=== PATIENT | male | born 1980 | race Caucasian/White ===

== ENCOUNTER → 2019-09-18 | Outpatient (CLI) | payer OTHER ==
--- NOTE | 2019-09-19 16:34 | XR ---
EXAMINATION TYPE: XR elbow complete RT DATE OF EXAM: 09/18/2019 CLINICAL HISTORY: pain TECHNIQUE: Frontal, lateral and oblique images of the right elbow are obtained. COMPARISON: None. FINDINGS: There is no acute fracture/dislocation evident of the elbow. No abnormal fat pad signs ar e seen. The overlying soft tissue appears unremarkable. IMPRESSION: There is no acute fracture or dislocation of the elbow. ICD 10 NO FRACTURE, INITIAL EVALUATION
== END | disposition home or self-care (01) ==
LOC: RADXRYALE 16:11
PROVIDERS: ATTEND Internal Medicine
DX: M25.521 Pain in right elbow (principal)

== ENCOUNTER 2021-03-07 06:00 | Emergency (ER) | payer OTHER ==
[2021-03-07 06:04] VITALS: BP 159/93; PULSE 53; RESP 22; TEMP 97.8
[2021-03-07] MEDS ORDERED: diazePAM 5 MG TAB PO STA (06:26)
[2021-03-07] MEDS ORDERED: KETOROLAC 15 MG/ML 1 ML VIAL IM STA (06:26)
--- NOTE | 2021-03-07 06:26 | ED ---
Back Pain HPI - General Source: patient, family Limitations: no limitations <Oneida Jackson - Last Filed: 03/07/21 06:32> <Mike May - Last Filed: 03/07/21 06:50> - General Chief Complaint: Back Pain/Injury Stated Complaint: Back Pain Time Seen by Provider: 03/07/21 06:06 - History of Present Illness Initial Comments: Patient is a 40-year-old male presenting to emergency Department with complaints of a flareup of his sciatic on the left side. He states its been going on for about 3-4 weeks, he's been following with his PCP. He has ibuprofen 600 at home as well as Flexeril which he took last night. He states he woke up early this morning with spasms of his left lower back and increased discomfort down into his left leg. States he did take an ibuprofen this morning without improvement. He does have a follow-up with his PCP next week. He denies any fevers or chills, no saddle paresthesia, no numbness or tingling down his left leg. He denies any bowel or bladder incontinence. Denies any falls or trauma. He has no further complaints at this time. (Oneida Jackson) - Related Data Allergies Allergy/AdvReac Type Severity Reaction Status Date / Time amoxicillin Allergy Swelling Verified 03/07/21 06:04 Review of Systems ROS Other: All systems not noted in ROS Statement are negative. <Oneida Jackson - Last Filed: 03/07/21 06:32> ROS Other: All systems not noted in ROS Statement are negative. <Mike May - Last Filed: 03/07/21 06:50> ROS Statement: Those systems with pertinent positive or pertinent negative responses have been documented in the HPI. Past Medical History Past Medical History: No Reported History History of Any Multi-Drug Resistant Organisms: None Reported Past Surgical History: No Surgical Hx Reported Past Psychological History: No Psychological Hx Reported Smoking Status: Former smoker Past Alcohol Use History: Rare Past Drug Use History: None Reported <Oneida Jackson - Last Filed: 03/07/21 06:32> General Exam Limitations: no limitations <Oneida Jackson - Last Filed: 03/07/21 06:32> - General Exam Comments Initial Comments: GENERAL: Patient is well-developed and well-nourished. Patient is nontoxic and in mild distress. HEAD: Atraumatic, normocephalic. EYES: Pupils equal round and reactive to light, extraocular movements intact, sclera anicteric, conjunctiva are normal. Eyelids were unremarkable. ENT: Moist mucous membranes. NECK: Normal range of motion, supple without lymphadenopathy or JVD. LUNGS: Unlabored respirations. Breath sounds clear to auscultation bilaterally and equal. No wheezes rales or rhonchi. HEART: Regular rate and rhythm without murmurs, rubs or gallops. ABDOMEN: Soft, nontender, normoactive bowel sounds. MUSCULOSKELETAL: Mild pain with palpation of the left low back and into the left Glute. He has pain with resisted straight leg test. Neurovascular intact, sensation is equal bilateral lower extremity. No clubbing or cyanosis. NEUROLOGICAL: Patient is alert and oriented x 3. Motor and sensory are also intact. Cranial nerves II through XII grossly intact. Symmetrical smile. Normal speech, normal gait. PSYCH: Normal mood, normal affect. SKIN: Warm, Dry, normal turgor, no rashes or lesions noted. (Oneida Jackson) Course Vital Signs 03/07/21 06:00 Temperature 97.8 F Pulse Rate 53 L Respiratory 22 Rate Blood Pressure 159/93 O2 Sat by Pulse 99 Oximetry Medical Decision Making <Oneida Jackson - Last Filed: 03/07/21 06:32> - Medical Decision Making Patient is a 40-year-old male presenting with a flareup of his left-sided sciatica. Has been dealing with this for about 3-4 weeks. He has been following with his PCP regarding this. He did take an ibuprofen and a Flexeril this morning without improvement. His vitals are stable, he denies any fevers. He has no alarming symptoms, no acute neuro deficit, no saddle paresthesia, no bowel or bladder incontinence. Patient will be given a pain shot, muscle relaxer to go home with. Recommend following up with his PCP. He is agreeable to this and is stable for discharge. Case discussed with Dr. May. (Oneida Jackson) Disposition Is patient prescribed a controlled substance at d/c from ED?: No Time of Disposition: 06:35 <Oneida Jackson - Last Filed: 08/03/21 06:32> <Mike May - Last Filed: 03/07/21 06:50> Clinical Impression: Sciatica of left side, Muscle spasm of back Disposition: HOME SELF-CARE Condition: Stable Instructions (If sedation given, give patient instructions): Sciatica (ED) Additional Instructions: Please return to the Emergency Department if symptoms worsen or any other concerns. Please continue to follow-up with your PCP regarding your sciatica. Continue with hot packs/stretches. May alternate between tylenol and motrin for pain relief. Referrals: Jessica Sierra MD [Primary Care Provider] - 1-2 days
[2021-03-07] MEDS ORDERED: ACET/COD 300 MG/30 MG STARTER PACK 6 TAB BTL PO STA (06:27)
== END 2021-03-07 06:54 | disposition home or self-care (01) ==
LOC: EC 06:00
DX: M62.830 Muscle spasm of back (principal); M54.32 Sciatica, left side; Z87.891 Personal history of nicotine dependence
CPT/HCPCS: 99283; 96372; J1885